=== PATIENT | male | born 1990 | race Caucasian/White ===

== ENCOUNTER 2018-12-14 10:15 | Emergency (ER) | payer OTHER ==
--- NOTE | 2018-12-14 10:36 | ED ---
Laceration/Wound HPI - HPI Summary HPI Summary: 28 year old male with no PMH, no medications, no FMH of poor wound healing presents with laceration to right middle finger over PIP. occurred one hour ago, laceration on metal sheeting, does not know tetanus status. bleeding controlled, no other complaints/ concerns. - History of Current Complaint Stated Complaint: FINGER LAC Time Seen by Provider: 12/14/18 10:35 Hx Obtained From: Patient Onset/Duration: Sudden Onset, Lasting Hours Aggravating: Nothing Alleviating: Nothing Current Severity: None Pain Scale Used: 0-10 Numeric Associated Signs & Symptoms: Negative Related Hx: Dominant Hand (Right) - Allergy/Home Medications Allergies/Adverse Reactions: Allergies Allergy/AdvReac Type Severity Reaction Status Date / Time hydromorphone [From Dilaudid] Allergy Altered Verified 12/14/18 10:42 Mental Status PMH/Surg Hx/FS Hx/Imm Hx Previously Healthy: Yes Infectious Disease History: Denies: Traveled Outside the [place] in Last 30 Days Review of Systems Constitutional: Negative Positive: Other - laceration Psychological: Normal All Other Systems Reviewed And Are Negative: Yes Physical Exam Triage Information Reviewed: Yes Vital Signs Reviewed: Yes Appearance: Positive: Well-Appearing, No Pain Distress, Well-Nourished Skin: Positive: Warm, Skin Color Reflects Adequate Perfusion, Other - laceration to right 3rd PIP , full thickness, no edema, discharge, or bruising noted. Head/Face: Positive: Normal Head/Face Inspection Eyes: Positive: EOMI, Conjunctiva Clear ENT: Positive: Hearing grossly normal Neck: Negative: Nuchal Rigidity Musculoskeletal: Positive: Normal, Strength/ROM Intact Neurological: Positive: Normal, Sensory/Motor Intact, Alert, Oriented to Person Place, Time, CN Intact II-III Psychiatric: Positive: Normal AVPU Assessment: Alert Procedures - Laceration/Wound Repair 1 Location: upper extremity - 4rd right finger PIP Description: Linear Anesthesia: Local, 1.0%, Lido Length, Depth and Shape: 1cm x 2mmx 3mm Betadine Prep?: No Laceration/Wound Explored: clean Closure: Single Layer Suture Type: Nylon Number of Sutures: 3 Layer Closure?: No Laceration Repair Course/Dx - Course Course Of Treatment: under semi-sterile conditions, laceration over R PIP 3rd finger closed after cleaning with hibiclens, NS; anes with lido, no epi, 2cc, area closed with single layer 3.0 nylon without complications, tolerated well. removal in 7 days - Differential Dx Differental Diagnoses: Cellulitis, Foreign Body - Clinical Impression Provider Diagnoses: Laceration of right middle finger Discharge - Sign-Out/Discharge Documenting (check all that apply): Patient Departure All imaging exams completed and their final reports reviewed: No Studies - Discharge Plan Condition: Good Disposition: HOME Prescriptions: Cephalexin CAP* [Keflex CAP*] 500 mg PO TID #15 cap Patient Education Materials: Laceration (ED), Care For Your Stitches (ED) Forms: *Work Release Referrals: No Primary Care Phys,NOPCP [Primary Care Provider] - Additional Instructions: - Do not submerge wound until sutures removed. Use gloves to avoid getting area dirty/ wet - Keep dressing on until sutures removed. - Start antibiotics if you notice area becomes red, swollen, or drainage appears - Sutures to be removed in 7-10 days - Tetanus booster given - Billing Disposition and Condition Condition: GOOD Disposition: Home
[2018-12-14] MEDS ORDERED: Tetan/Diph/Pertus SYR(Tdap)* 0.5 ML SYR(BOOSTRIX) use SYR IM ONE (10:49)
[2018-12-14] MEDS ORDERED: Lidocaine 2% PF * 5 ML VIAL INJ ONE (10:49)
== END 2018-12-14 11:25 | disposition home or self-care (01) ==
LOC: UCEAST 10:15
DX: S61.212A Laceration without foreign body of right middle finger without damage to nail, initial encounter (principal); W26.8XXA Contact with other sharp object(s), not elsewhere classified, initial encounter; Y92.9 Unspecified place or not applicable
CPT/HCPCS: 12001; 90715; 99202; G0463